=== PATIENT | female | born 2000 | race Caucasian/White ===

== ENCOUNTER 2020-01-10 19:56 | Emergency (ER) | payer OTHER ==
[~2020-01-10] VITALS: Ht 180.3 cm; Wt 68.7 kg
[2020-01-10 20:10] VITALS: Ht 180.3 cm; Wt 68.7 kg
[2020-01-10 20:56] LABS: BASOPHIL % 0.7 % (0-2); PLATELET COUNT 269 x10^3mcL (130-400); RED CELL DISTRIBUTION WIDTH 14.9 % (11.5-14.5)
[2020-01-10 20:57] LABS: CALCIUM 9.2 mg/dL (8.5-10.1); CARBON DIOXIDE 29.5 mmol/L (21-32); CHLORIDE SERUM 104 mmol/L (98-107); CREATININE SERUM 0.8 mg/dL (0.6-1.0); GFR1 > 60 mL/min; GLUCOSE SERUM 78 mg/dL (74-106); POTASSIUM SERUM 3.5 mmol/L (3.5-5.1); SODIUM SERUM 140 mmol/L (136-145)
[2020-01-10 21:01] LABS: ALBUMIN 4.3 g/dL (3.4-5.0); ALKALINE PHOSPHATASE 61 U/L (46-116); ALT/SGPT 17 U/L (14-59); AST/SGOT 9 U/L (15-37); BILIRUBIN TOTAL 0.3 mg/dL (0.20-1.00); LIPASE 135 IU/L (73-393); TOTAL PROTEIN, SERUM 7.1 g/dL (6.4-8.2)
[2020-01-10 22:58] VITALS: BP 108/64
== END 2020-01-10 22:58 | disposition home or self-care (01) ==
LOC: ED 19:56
PROVIDERS: Emergency Medicine
DX: K52.9 Noninfective gastroenteritis and colitis, unspecified (principal); R10.30 Lower abdominal pain, unspecified; Z88.1 Allergy status to other antibiotic agents
CPT/HCPCS: J7030; Q9967